=== PATIENT | female | born 2000 | race Caucasian/White ===

== ENCOUNTER 2024-10-03 12:40 | Emergency (ER) | payer MEDICAID ==
[~2024-10-03] VITALS: Ht 162.6 cm; Wt 90.0 kg
[2024-10-03 12:46] VITALS: O2SAT 100
[2024-10-03] MEDS: DEXAMETHASONE 10 MG/ML VIAL PO ONE (14:21)
[2024-10-03] MEDS: KETOROLAC 30MG/ML VIAL IM ONE (14:21)
[2024-10-03] MEDS: DEXAMETHASONE 1 MG/ML ORAL SYR PO ONE (14:21)
[2024-10-03] MEDS: LIDOCAINE 5% PATCH TOP SCH (14:21)
[2024-10-03] MEDS ORDERED: LIDO-53 TP (15:31)
[2024-10-03 15:51] VITALS: BP 120/77; PULSE 80; RESP 16; TEMP 37; O2SAT 100
== END 2024-10-03 15:52 | disposition home or self-care (01) ==
LOC: ER 13:50
DX: G89.29 Other chronic pain (principal); M54.50 Low back pain, unspecified
CPT/HCPCS: 99283; 96372; J1885; J1100; J8540